=== PATIENT | female | born 1985 | race Caucasian/White ===

== ENCOUNTER → 2024-03-28 14:27 | Outpatient (CLI) | payer OTHER, SELFPAY ==
--- NOTE | 2024-03-28 14:31 | DI.MG.S_ITS ---
BILATERAL DIGITAL SCREENING MAMMOGRAM 3D/2D WITH CAD: 03/28/2024 CLINICAL: Baseline exam. Routine screening. No prior exams were available for comparison. The breasts are heterogeneously dense, which may obscure small masses (category c / 51-75% glandular tissue). Current study was also evaluated with a Computer Aided Detection (CAD) system. No significant masses, calcifications, or other findings are seen in either breast. IMPRESSION: NEGATIVE There is no mammographic evidence of malignancy. A 1 year screening mammogram is recommended. Based on the Tyrer Cuzick model (a risk assessment model) the patient's lifetime risk is 8.3% and her 10 year risk is 1.0%. According to the ACR, ACS, and NCCN guidelines, an annual breast MRI exam along with mammogram is recommended if the patient's lifetime risk is 20% or greater. This exam was interpreted at Station ID: [id number]. NOTE: For mammograms, a report in lay terms will be sent to the patient. Approximately 15% of breast malignancies will not be visualized mammographically. In the management of a palpable breast mass, a negative mammogram must not discourage biopsy of a clinically suspicious lesion. Electronically Signed By: Jovon kay/donald:03/29/2024 08:50:32 letter sent: Normal Exam ACR BI-RADS Category 1: Negative
== END ==
LOC: MAMMO 14:30
PROVIDERS: PCP Registered Nurse; Referring Provider Registered Nurse; Visit Provider Registered Nurse
DX: Z12.31 Encounter for screening mammogram for malignant neoplasm of breast (principal); Z80.3 Family history of malignant neoplasm of breast
CPT/HCPCS: 77063; 77067

== ENCOUNTER → 2024-04-19 13:08 | Outpatient (CLI) | payer OTHER, SELFPAY ==
--- NOTE | 2024-04-19 13:10 | DI.US.S_ITS ---
LIMITED ULTRASOUND OF RIGHT BREAST AND AXILLA: 04/19/2024 CLINICAL: Focal intermittent right breast pain. Comparison is made to exam dated: 03/28/2024 mammogram - [facility]. Color flow and real-time ultrasound of the right breast 3 o'clock, 10-11 o'clock, and axilla regions were performed. No sonographic abnormality in the areas of clinical pain in the right breast at 3 o'clock, 4 cm from the nipple, 10 o'clock, 7 cm from the nipple, and at 11 o'clock, 7 cm from the nipple. No sonographic abnormality in the area of clinical concern in the right axilla. Morphologically normal lymph node is visualized. IMPRESSION: BENIGN No sonographic abnormality in the area of clinical pain in the right breast. Morphologically normal right axillary lymph node is benign. No sonographic evidence of malignancy. Recommend return to routine annual mammogram screening. Clinical follow-up is also recommended, and further management of palpable abnormalities or other focal signs or symptoms should be based on the results of clinical evaluation. If palpable abnormality or other concerning symptom persists or progresses, further clinical evaluation should be considered. Findings and recommendations were conveyed to the patient during today's evaluation. This exam was interpreted at Station ID: [id number]. Electronically Signed By: Maryann Horta M.D., Ph.D. eb/:04/20/2024 16:09:36 letter sent: Clinical Evaluation ACR BI-RADS Category 2: Benign
== END ==
LOC: US 13:09
PROVIDERS: PCP Registered Nurse; Referring Provider Registered Nurse; Visit Provider Registered Nurse
DX: N64.4 Mastodynia (principal)
CPT/HCPCS: 76642